=== PATIENT | female | born 1970 | race Caucasian/White ===

== ENCOUNTER 2017-05-06 14:23 | Emergency (ER) | payer BC ==
[~2017-05-06] VITALS: Ht 172.7 cm; Wt 117.9 kg
[2017-05-06] MEDS ORDERED: IBUPROFEN 400 MG TAB PO ONE (15:00)
[2017-05-06] MEDS ORDERED: ACETAMINOPHEN 325 MG TAB PO ONE (15:00)
--- NOTE | 2017-05-06 15:15 | Diagnostic Imaging Report ---
EXAMINATION: CHEST 2 VIEWS INDICATION: \S\FEVER/COUGH COMPARISON: None FINDINGS: PA and lateral views TUBES and LINES: None. LUNGS: Lungs are well inflated. Bilateral peribronchial cuffing. There is no evidence of pneumonia or pulmonary edema. PLEURA: No pleural effusion or pneumothorax. HEART AND MEDIASTINUM: The cardiomediastinal silhouette is unremarkable. BONES AND SOFT TISSUES: No acute osseous lesion. Soft tissues are unremarkable. UPPER ABDOMEN: No free air under the diaphragm. IMPRESSION: Bilateral peribronchial cuffing, which could represent viral etiology or reactive airway disease. Signed by: Dr. Royal Cannon M.D. on 05/06/2017 3:11 PM
== END 2017-05-06 16:48 | disposition home or self-care (01) ==
LOC: ER 14:23
DX: R50.9 Fever, unspecified (principal); R05 Cough; J00 Acute nasopharyngitis [common cold]; I10 Essential (primary) hypertension; F17.210 Nicotine dependence, cigarettes, uncomplicated
CPT/HCPCS: 71020; 87400; 99283

== ENCOUNTER → 2017-06-16 | Outpatient (CLI) | payer BC | LOC: SLEEP 19:31 | DX: G47.19 Other hypersomnia (principal) | CPT/HCPCS: 95810 ==

== ENCOUNTER → 2017-07-06 | Outpatient (CLI) | payer BC ==
--- NOTE | 2017-07-06 14:57 | Diagnostic Imaging Report ---
PROCEDURE:X-RAY ABDOMEN - KUB COMPARISON:CT dated 12/07/2015 INDICATIONS:LOCALIZE IUD FINDINGS: There is a non-obstructed bowel-gas pattern. There are no calcifications projected over the renal shadows, expected course of the ureters or bladder. There are no acute osseous abnormalities. IUD overlying pelvis. CONCLUSION: IUD overlying pelvis. Dictated by: Artemio Dotson M.D. on 07/06/2017 at 14:58 Electronically approved by: Artemio Dotson M.D. on 07/06/2017 at 14:58
--- NOTE | 2017-07-09 12:26 | Polysomnography ---
DATE OF STUDY: July 06, 2017 DIAGNOSTIC POLYSOMNOGRAM REFERRING PHYSICIAN: Dr. Humble Reyes. HISTORY: This is a 47-year-old female with migraine and excessive daytime sleepiness. PAST MEDICAL HISTORY: Migraines, mood disorder, hypertension. Patient with Rentz sleepiness scale score of 15. BMI is 41.1. CURRENT MEDICINES: Inderal, sertraline, Abilify, gabapentin, and Ambien. Patient presents for a diagnostic polysomnogram. FINDINGS: Polysomnogram revealed total sleep time of 438.5 minutes, a sleep efficiency of 93%. Sleep onset latency was achieved in 16 minutes, REM latency 123 minutes. All sleep stages were noted. Stage N1 of 3.2%, N2 of 49.5%, N3 of 32.5%, REM 14.8% of total sleep time. Intermittent snoring was noted. A total of 3 obstructive apneas and 9 hypopneas were noted for apnea hypopnea index of 1.6 events per hour. Events were more likely to occur in REM sleep. REM sleep was only studied in the side position on this night. For the total night, 12.3% of sleep time was in supine position. Lowest oxygen saturation was 82%, but there was no sustained desaturations. A total of 69 periodic limb movements of sleep were noted for a periodic limb movement and sleep index of 9.4 events per hour. Single lead EKG analysis demonstrated sinus rhythm and was otherwise unremarkable. Patient did not take sleeping pill prior to this sleep study, per report. INTERPRETATION: This is an abnormal polysomnogram due to the presence of 1. Intermittent snoring: Multiple factors such as obesity, thyroid disease, and structural/obstructive abnormalities in upper airway can be contributory. Evaluation and management of these factors may be helpful. The patient does not require CPAP therapy. An ENT examination may be helpful if snoring persists and creates significant lifestyle difficulties. 2. Subjective sleepiness. Patient reported excess daytime sleepiness for a number of years. Patient should not drive or operate dangerous machinery if sleepy. Clinical followup should ensue to ensure that this sleepiness resolves or is addressed appropriately. Abilify may contribute to daytime sleepiness and review of her other medicines should be made as well. If it is felt the patient sleeps supine significantly more than what she did in her sleep lab, then repeat polysomnogram can be considered if it is felt that thus study underestimates any respiratory related sleep disturbances. If excessive daytime sleepiness remains bothersome and there is a concern for a hypersomnia such as narcolepsy, consideration may be for a second-night sleep study to be followed by multiple sleep latency testing. Clinical correlation is recommended. MD XUAN Yepez Certified in Sleep Medicine Job#: [id number]
--- NOTE | 2017-07-13 18:10 | Diagnostic Imaging Report ---
#[id number] - MGSCRBIL #BILATERAL DIGITAL SCREENING MAMMOGRAM WITH CAD: 07/06/2017 CLINICAL: Routine screening. Comparison is made to exam dated: 01/20/2016 mammogram - [facility]. Current study contains 4 films. The tissue of both breasts is heterogeneously dense. This may lower the sensitivity of mammography. Current study was also evaluated with a Computer Aided Detection (CAD) system. There is a benign intramammary node in the left breast that is stable. No significant masses, calcifications, or other findings are seen in either breast. There has been no significant interval change. IMPRESSION: BENIGN There is no mammographic evidence of malignancy. A 1 year screening mammogram is recommended. The patient will be notified by letter of the results. Deric Pederson Jr., D.O. cw/:07/12/2017 15:52:32 Ice Skating Teacher: Patricia MCGARRY)(Angel), [facility] letter sent: Compared to Prior B9 Mammogram BI-RADS: 2 Benign
== END ==
LOC: MAMMO 14:14
PROVIDERS: ATTEND Obstetrics & Gynecology
DX: Z12.31 Encounter for screening mammogram for malignant neoplasm of breast (principal); Z30.431 Encounter for routine checking of intrauterine contraceptive device; R06.83 Snoring; R94.8 Abnormal results of function studies of other organs and systems
CPT/HCPCS: 74018; 77067

== ENCOUNTER 2018-05-12 15:19 | Emergency (ER) | payer BC ==
[~2018-05-12] VITALS: Ht 172.7 cm; Wt 124.7 kg
--- OUTSIDE RECORDS SUMMARY | 2018-05-12 15:21 | XMS REPORT ---
[facility] Address Unknown Phone Unavailable Care Team Providers Care Final Expense Agent Name Role Phone SHONDA SILVA Unavailable Unavailable Cristofer CADENA Unavailable Unavailable Problems This patient has no known problems. Allergies, Adverse Reactions, Alerts This patient has no known allergies or adverse reactions. Medications This patient has no known medications. Results Test Description Test Time Test Comments Text Results Atomic Results Result Comments MAMMOGRAPHY DIGITAL SCR BILAT [place] [address] Patient Name: MANDEEP LYMAN MR #: [id number] : 1970 Age/Sex: 47/F Req #: [id number] [facility] Physician: Ordered by: SHONDA SIVLA MD Report #: [id number] Location: MAMMO Room/Bed: Procedure: [id number] MG/MAMMOGRAPHY DIGITAL SCR BILAT Exam Date: 07/06/17 Exam Time: 1422 REPORT STATUS: Signed #[id number] - MGSCRBIL #BILATERAL DIGITAL SCREENING MAMMOGRAM WITH CAD: 07/06/2017 CLINICAL: Routine screening. Comparison is made to exam dated: 01/20/2016 mammogram - [facility]. Current study contains 4 films. The tissue of both breasts is heterogeneously dense. This may lower the sensitivity of mammography. Current study was also evaluated with a Computer Aided Detection (CAD) system. There is a benign intramammary node in the left breast that is stable. No significant masses, calcifications, or other findings are seen in either breast. There has been no significant interval change. IMPRESSION: BENIGN There is no mammographic evidence of malignancy. A 1 year screening mammogram is recommended. The patient will be notified by letter of the results. Randy Pederson Jr., D.O. cw/:07/12/2017 15:52:32 Information Technology Analyst: Patricia MCGARRY)(Angel), [facility] letter sent: Compared to Prior B9 Mammogram BI-RADS: 2 Benign Dictated By: RANDY PEDERSON DO 51 Transcribed By: KADIE on 07/12/171551 COPY TO: SHONDA SILVA MD ABDOMEN-1VIEW (KUB) [place] [address] Patient Name: MANDEEP LYMAN MR #: [id number] : 1970 Age/Sex: 47/F Req #: [id number] Adm Physician: Ordered by: SHONDA SILVA MD Report #: [id number] Location: MAMMO Room/Bed: Procedure: [id number] DX/ABDOMEN-1VIEW (KUB) Exam Date: 07/06/17 Exam Time: 1430 REPORT STATUS: Signed PROCEDURE: X-RAY ABDOMEN - KUB COMPARISON: CT dated 12/07/2015 INDICATIONS: LOCALIZE IUD FINDINGS: There is a non-obstructed bowel-gas pattern. There are no calcifications projected over the renal shadows, expected course of the ureters or bladder. There are no acute osseous abnormalities. IUD overlying pelvis. CONCLUSION: IUD overlying pelvis. Dictated by: Artemio Archer M.D. on 07/06/2017 at 14:58 Electronically approved by: Artemio Archer M.D. on 07/06/2017 at 14:58 Dictated By: ARTEMIO ARCHER MD 1458 Transcribed By: ZELALEM on 07/06/17 1458 COPY TO: SHONDA SILVA MD CHEST 2 VIEWS [place] [address] Patient Name: MANDEEP LYMAN MR #: [id number] : 1970 Age/Sex: 47/F Req #: [id number] Adm Physician: Ordered by: RICHARD CADENA MD Report #: [id number] Location: ER Room/Bed: Procedure: [id number] DX/CHEST 2 VIEWS Exam Date: 05/06/17 Exam Time: 1500 REPORT STATUS: Signed EXAMINATION: CHEST 2 VIEWS INDICATION: S FEVER/COUGH COMPARISON: None FINDINGS: PA and lateral views TUBES and LINES: None. LUNGS: Lungs are well inflated. Bilateral peribronchial cuffing. There is no evidence of pneumonia or pulmonary edema. PLEURA: No pleural effusion or pneumothorax. HEART AND MEDIASTINUM: The cardiomediastinal silhouette is unremarkable. BONES AND SOFT TISSUES: No acute osseous lesion. Soft tissues are unremarkable. UPPER ABDOMEN: No free air under the diaphragm. IMPRESSION: Bilateral peribronchial cuffing, which could represent viral etiology or reactive airway disease. Signed by: Dr. Robert Meza M.D. on 05/06/2017 3:11 PM Dictated By: ROBERT MEZA MD 151 Transcribed By: FRANDY on 05/06/171510 COPY TO: RICHARD CADENA MD
[2018-05-12] MEDS ORDERED: ALBUTEROL SULF 0.083% NEB SOLN 3 ML NEB NEB STA (15:46)
[2018-05-12] MEDS ORDERED: ACETAMINOPHEN 325 MG TAB PO ONE (16:00)
[2018-05-12] MEDS ORDERED: IPRATROPIUM BROMIDE 0.02% 2.5 ML NEB NEB ONE (16:00)
--- NOTE | 2018-05-12 17:05 | Diagnostic Imaging Report ---
EXAMINATION: PA and lateral views of the chest. COMPARISON: Chest 2 views 05/06/2017 CLINICAL HISTORY: Chest pain DISCUSSION: Lines/tubes: None. Lungs: The lungs are well inflated and clear. There is no evidence of pneumonia or pulmonary edema. Pleura: There is no pleural effusion or pneumothorax. Heart and mediastinum: Cardiomediastinal silhouette is unremarkable. Pulmonary vasculature is normal. Bones and soft tissues: No acute bony abnormalities. Mild age-appropriate degenerative changes in the thoracic spine IMPRESSION: No acute cardiopulmonary abnormalities. Signed by: Dr. Manan Montero M.D. on 05/12/2018 5:01 PM
== END 2018-05-12 18:02 | disposition home or self-care (01) ==
LOC: FSED 15:19
DX: R05 Cough (principal); J20.9 Acute bronchitis, unspecified; J00 Acute nasopharyngitis [common cold]
CPT/HCPCS: 71046; 87400; 99283

== ENCOUNTER → 2019-12-31 | Outpatient (CLI) | payer BC ==
--- NOTE | 2019-12-31 11:39 | Diagnostic Imaging Report ---
TECHNIQUE: Magnetic resonance imaging of the LEFT KNEE was performed WITHOUT injected contrast. HISTORY: Left knee pain COMPARISON: None available. FINDINGS: LIGAMENTS AND TENDONS: ACL: Intact PCL: Intact Collateral ligaments: Intact Iliotibial band: Unremarkable Popliteal tendon: Intact Extensor mechanism: Intact JOINT: Menisci: Medial: Complete radial tear posterior horn root junction results in extrusion. Lateral: Intact Articular Cartilage: Medial Compartment: Partial-thickness cartilage loss Lateral Compartment: Partial-thickness cartilage loss Patellofemoral Compartment: Regions of full-thickness cartilage loss predominantly involving the lateral patellar facet. Joint Fluid: Moderate joint effusion. BONE: No focal or infiltrative bone marrow replacing abnormality. No acute fracture. SOFT TISSUES: Otherwise, unremarkable. IMPRESSION: Medial meniscus radial tear posterior horn root junction results in extrusion and partial thickness cartilage loss. Patellofemoral cartilage damage with regions of full-thickness loss. Signed by: Dr. Dexter Hernandez M.D. on 12/31/2019 11:36 AM
== END ==
LOC: MRI 10:14
PROVIDERS: ATTEND Specialist
DX: S83.242A Other tear of medial meniscus, current injury, left knee, initial encounter (principal)

== ENCOUNTER → 2020-01-14 | Day surgery (SDC) | payer BC, OTHER ==
[~2020-01-14] MED LIST: ABILIFY15 MG; ACETAMINOPHEN/CODEINE 300MG - 30MG TAB ONE; ATIVAN1 MG; ATROPINE SULFATE 1 MG/ML VIAL ONE; BUPIVACAINE 0.5%/EPI 30 ML SDV INJ ONE; CEFAZOLIN SOD 1 GM/NS 50ML 100 ML IV ONE; CRESTOR10 MG; DEXAMETHASONE SOD PHOS INJ 4 MG/ML VIAL ONE; FENTANYL CITRATE/PF 100MCG/2 ML INJ ONE; HYDROMORPHONE 1MG/1ML INJ ONE; KETOROLAC TROMETHAMINE 30 MG/ML VIAL ONE; LABETALOL HCL 5 MG/ML 20ML VIAL ONE; LIDOCAINE HCL 2% LOCAL INJ 5 ML SDV VIAL INJ ONE; LOSARTAN POTAS100 MG PO; MIDAZOLAM HCL 2 MG/2 ML VIAL ONE; NEXIUM40 MG PO; ONDANSETRON HCL INJ 2MG/ML 2ML 2 MG/ML VIAL ONE; PROPOFOL IV EMULSION 10 MG/ML 20 ML VIAL ONE; RELPAX40 MG PO; REQUIP0.25 MG; SEVOFLURANE INHAL SOLN 250 ML PEN BTL ONE; TRAZADONE; VITAMIN D32400 UNIT/; ZOLOFT50 MG PO
[2020-01-14 11:07] VITALS: BP 5/8
--- NOTE | 2020-01-15 15:56 | Operative Report ---
DATE OF PROCEDURE: 01/14/2020 SURGEON: Shiva Duran MD PREOPERATIVE DIAGNOSIS: Left knee medial meniscus tear and left knee degenerative joint disease of the knee. POSTOPERATIVE DIAGNOSES: Left knee medial meniscus tear and left knee degenerative joint disease of the knee. OPERATIONS AND PROCEDURES PERFORMED: The patient underwent a left knee exam under anesthesia, left knee arthroscopy, left knee partial medial meniscectomy, left knee chondroplasty of the patella, the medial femoral condyle, the medial tibial plateau, and a lateral tibial plateau. PARANORMAL INVESTIGATOR: None. ANESTHESIA: General endotracheal intubation anesthesia. IV FLUIDS: Per the anesthesia record. BRIEF DESCRIPTION OF THE PATIENT'S OPERATIVE PROCEDURE: Ms. Peoples was taken to the operating room and placed in supine position on the operating table. Following induction of general anesthesia as well as endotracheal intubation, the patient's left lower extremity was examined under anesthesia. She was found to have a mild effusion within the knee joint, but otherwise ligamentously stable knee. The patient's lower extremity was prepped and draped in standard surgical fashion. A two-port technique was used to provide this patient's arthroscopic evaluation of the knee joint. Examination of the suprapatellar pouch and medial and lateral gutters found no evidence of loose bodies. The patient was found to have chondromalacia of the patella and trochlear surfaces. The scope was advanced to medial compartment. Examination of the medial compartment demonstrated a torn medial meniscus of the posterior horn root. There was also chondromalacia of the articulating surfaces. A combination of biting forceps and a motorized shaver were used to resect the torn portion of meniscus. Chondroplasties of the medial femoral condyle and medial tibial plateau are performed at this time. Scope was then advanced to intercondylar notch and anterior cruciate ligament was identified and found to be intact. Scope was then advanced to lateral compartment and chondromalacia of the lateral tibial plateau was encountered. A chondroplasty of this surface was performed. Scope was then placed in suprapatellar pouch and chondroplasties of the patellar and trochlear are performed. The knee was then deflated with sterile normal saline. Each of the portal sites were closed using 4-0 nylon suture. The portal sites as well as knee itself were injected with 0.5% Marcaine with epinephrine. Sterile dressings were applied. The patient was awakened and taken to the postanesthesia care unit in stable condition. MD CHRISTIANO Melgar/KRIS /[id number]
== END | disposition home or self-care (01) ==
LOC: OR 05:00
PROVIDERS: ATTEND Specialist
DX: S83.222A Peripheral tear of medial meniscus, current injury, left knee, initial encounter (principal); M17.12 Unilateral primary osteoarthritis, left knee; M22.42 Chondromalacia patellae, left knee; G25.81 Restless legs syndrome; K29.70 Gastritis, unspecified, without bleeding; G43.909 Migraine, unspecified, not intractable, without status migrainosus; G47.30 Sleep apnea, unspecified; E78.5 Hyperlipidemia, unspecified; R00.1 Bradycardia, unspecified; F32.9 Major depressive disorder, single episode, unspecified; F41.9 Anxiety disorder, unspecified; F17.210 Nicotine dependence, cigarettes, uncomplicated; Z88.8 Allergy status to other drugs, medicaments and biological substances; Z01.810 Encounter for preprocedural cardiovascular examination; Z01.812 Encounter for preprocedural laboratory examination; Z11.59 Encounter for screening for other viral diseases; Z68.41 Body mass index [BMI] 40.0-44.9, adult
CPT/HCPCS: 29881; 81025; 93005; J0461; J0690; J1100; J1170; J1885; J2001; J2250; J2405; J2704; J3010; J3490; U0002

== ENCOUNTER 2020-02-20 15:00 | Outpatient (RCR) | payer BC ==
[~2020-02-20 15:00] MED LIST changes: -ACETAMINOPHEN/CODEINE 300MG - 30MG TAB ONE; -ATROPINE SULFATE 1 MG/ML VIAL ONE; -BUPIVACAINE 0.5%/EPI 30 ML SDV INJ ONE; -CEFAZOLIN SOD 1 GM/NS 50ML 100 ML IV ONE; -DEXAMETHASONE SOD PHOS INJ 4 MG/ML VIAL ONE; -FENTANYL CITRATE/PF 100MCG/2 ML INJ ONE; -HYDROMORPHONE 1MG/1ML INJ ONE; -KETOROLAC TROMETHAMINE 30 MG/ML VIAL ONE; -LABETALOL HCL 5 MG/ML 20ML VIAL ONE; -LIDOCAINE HCL 2% LOCAL INJ 5 ML SDV VIAL INJ ONE; -MIDAZOLAM HCL 2 MG/2 ML VIAL ONE; -ONDANSETRON HCL INJ 2MG/ML 2ML 2 MG/ML VIAL ONE; -PROPOFOL IV EMULSION 10 MG/ML 20 ML VIAL ONE; -SEVOFLURANE INHAL SOLN 250 ML PEN BTL ONE
== END 2020-02-28 ==
LOC: PT 15:00
PROVIDERS: ATTEND Specialist
DX: M25.562 Pain in left knee (principal); M25.662 Stiffness of left knee, not elsewhere classified; M62.81 Muscle weakness (generalized); R26.89 Other abnormalities of gait and mobility

== ENCOUNTER 2020-03-15 17:27 | Outpatient (RCR) | payer BC | END 2020-03-29 | LOC: PT 17:27 | PROVIDERS: ATTEND Specialist | DX: M25.562 Pain in left knee (principal); M25.662 Stiffness of left knee, not elsewhere classified; M62.81 Muscle weakness (generalized); R26.89 Other abnormalities of gait and mobility ==

== ENCOUNTER → 2020-05-04 | Outpatient (CLI) | payer OTHER ==
[~2020-05-04] MED LIST changes: +COVID-19 VACC, MRNA(MODERNA)/PF 100 MCG/0.5 ML VIAL IM ONE
== END | disposition home or self-care (01) ==
LOC: VACCPMC 07:00
DX: Z23 Encounter for immunization (principal); Z20.822 Contact with and (suspected) exposure to COVID-19

== ENCOUNTER 2020-05-25 15:00 | Outpatient (RCR) | payer BC, OTHER ==
[~2020-05-25 15:00] MED LIST changes: -COVID-19 VACC, MRNA(MODERNA)/PF 100 MCG/0.5 ML VIAL IM ONE
== END 2020-05-30 ==
LOC: PT 15:00
PROVIDERS: ATTEND Specialist
DX: M22.2X2 Patellofemoral disorders, left knee (principal); M25.562 Pain in left knee; M25.662 Stiffness of left knee, not elsewhere classified; M62.81 Muscle weakness (generalized)

== ENCOUNTER → 2020-06-02 | Outpatient (CLI) | payer OTHER | END | DRG 951 | LOC: VACCPMC 07:30 | DX: Z23 Encounter for immunization (principal); Z20.822 Contact with and (suspected) exposure to COVID-19 | CPT/HCPCS: 0012A; 91301 ==

== ENCOUNTER 2020-06-03 14:59 | Outpatient (RCR) | payer OTHER | END 2020-06-27 | LOC: PT 14:59 | PROVIDERS: ATTEND Specialist | DX: M25.562 Pain in left knee (principal); M22.2X2 Patellofemoral disorders, left knee; M25.662 Stiffness of left knee, not elsewhere classified; M62.81 Muscle weakness (generalized) ==

== ENCOUNTER → 2020-11-04 | Day surgery (SDC) | payer OTHER ==
[~2020-11-04] MED LIST changes: -ABILIFY15 MG; +ABILIFY15 MG PO; +AMITRIPTYLINE H10 MG PO; +ATROPINE SULFATE 1 MG/ML VIAL ONE; -CRESTOR10 MG; +CRESTOR10 MG PO; +DETROL LA4 MG PO; +DEXAMETHASONE SOD PHOS INJ 4 MG/ML VIAL ONE; +DIOVAN160 MG PO; +FENTANYL CITRATE/PF 100MCG/2 ML INJ ONE; +LIDOCAINE 1% W/EPINEPHRINE 20 ML VIAL ONE; +LIDOCAINE HCL 2% LOCAL INJ 5 ML SDV VIAL INJ ONE; +MIDAZOLAM HCL 2 MG/2 ML VIAL ONE; +MUPIROCIN 2% OINT 22 GM TUBE ONE; +ONDANSETRON HCL INJ 2MG/ML 2ML 2 MG/ML VIAL ONE; +POVIDONE IODINE 0.05% 0.05 % ML PO ONE; +POVIDONE IODINE 5% (OPTH) 30 ML BTL ONE; +PROPOFOL IV EMULSION 10 MG/ML 20 ML VIAL ONE; -REQUIP0.25 MG; +REQUIP0.25 MG PO; +SEVOFLURANE INHAL SOLN 250 ML PEN BTL ONE; +SODIUM CHLORIDE 0.9% 50ML 50 ML ONE; -TRAZADONE; +TRAZADONE PO; +VITAMIN D32400 UNIT/ PO
[2020-11-04 09:54] VITALS: BP 5/8
== END | disposition home or self-care (01) ==
LOC: OR 05:31
PROVIDERS: ATTEND Plastic Surgery
DX: C44.311 Basal cell carcinoma of skin of nose (principal); I10 Essential (primary) hypertension; Z88.8 Allergy status to other drugs, medicaments and biological substances
CPT/HCPCS: 11640; 81025; 88305; 88331; 93005; J0461; J0690; J1100; J2001; J2250; J2405; J2704; J3010

== ENCOUNTER → 2021-02-24 | Outpatient (CLI) | payer OTHER ==
[~2021-02-24] MED LIST changes: -ATROPINE SULFATE 1 MG/ML VIAL ONE; +COVID-19 VACC, MRNA(MODERNA)/PF 100 MCG/0.5 ML VIAL IM ONE; -DEXAMETHASONE SOD PHOS INJ 4 MG/ML VIAL ONE; -FENTANYL CITRATE/PF 100MCG/2 ML INJ ONE; -LIDOCAINE 1% W/EPINEPHRINE 20 ML VIAL ONE; -LIDOCAINE HCL 2% LOCAL INJ 5 ML SDV VIAL INJ ONE; -MIDAZOLAM HCL 2 MG/2 ML VIAL ONE; -MUPIROCIN 2% OINT 22 GM TUBE ONE; -ONDANSETRON HCL INJ 2MG/ML 2ML 2 MG/ML VIAL ONE; -POVIDONE IODINE 0.05% 0.05 % ML PO ONE; -POVIDONE IODINE 5% (OPTH) 30 ML BTL ONE; -PROPOFOL IV EMULSION 10 MG/ML 20 ML VIAL ONE; -SEVOFLURANE INHAL SOLN 250 ML PEN BTL ONE; -SODIUM CHLORIDE 0.9% 50ML 50 ML ONE
== END ==
LOC: VACCPMC 07:27
DX: Z23 Encounter for immunization (principal); Z20.822 Contact with and (suspected) exposure to COVID-19

== ENCOUNTER 2021-06-19 22:10 | Emergency (ER) | payer BC, OTHER ==
[~2021-06-19] VITALS: Ht 172.7 cm; Wt 124.7 kg
[~2021-06-19 22:10] MED LIST changes: -COVID-19 VACC, MRNA(MODERNA)/PF 100 MCG/0.5 ML VIAL IM ONE
[2021-06-19] MEDS ORDERED: ALBUTEROL SULF 0.083% NEB SOLN 3 ML NEB NEB STA (22:24)
[2021-06-19] MEDS ORDERED: IPRATROPIUM BROMIDE 0.02% 2.5 ML NEB NEB ONE (22:30)
== END 2021-06-19 23:55 | disposition home or self-care (01) ==
LOC: ER 22:25
DX: R50.9 Fever, unspecified (principal); J40 Bronchitis, not specified as acute or chronic; R05.9 Cough, unspecified; Z20.822 Contact with and (suspected) exposure to COVID-19
CPT/HCPCS: 71045; 94799; 99283; U0002

== ENCOUNTER 2021-08-22 08:18 | Inpatient (IN) | payer BC ==
[2021-08-18 10:15] LABS: BASOPHILS # (AUTO) 0.1 (0.0-0.1); BASOPHILS % 0.8 % (0.0-1.0); EOSINOPHILS # (AUTO) 0.3 (0.0-0.4); EOSINOPHILS % 3.4 % (0.0-6.0); HEMATOCRIT 40.9 % (34.2-44.1); HEMOGLOBIN 12.7 g/dL (12.0-16.0); LYMPHOCYTES # (AUTO) 2.4 (1.0-3.2); LYMPHOCYTES % 26.6 % (18.0-39.1); MEAN CORPUSCULAR HEMOGLOBIN 26.6 pg (28-32); MEAN CORPUSCULAR HGB CONC 31.1 g/dL (31-35); MEAN CORPUSCULAR VOLUME 85.6 fL (81-99); MONOCYTES # (AUTO) 0.6 (0.2-0.8); MONOCYTES % 6.2 % (4.4-11.3); NEUTROPHILS # (AUTO) 5.7 (2.1-6.9); NEUTROPHILS % 62.3 % (38.7-80.0); PLATELET COUNT 327 x10e3/uL (140-360); RED BLOOD COUNT 4.78 x10e6/uL (3.6-5.1); RED CELL DISTRIBUTION WIDTH 15.5 % (11.7-14.4)
[2021-08-18 10:16] LABS: ALBUMIN 3.6 g/dL (3.5-5.0); CALCIUM 9.2 mg/dL (8.4-10.2); CREATININE, SERUM 0.79 mg/dL (0.57-1.11)
[~2021-08-22] VITALS: Ht 172.7 cm; Wt 139.3 kg
[2021-08-22] MEDS ORDERED: BUPIVACAINE HCL 0.25% 10ML MPF VIAL INJ ONE (10:50)
[2021-08-22] MEDS ORDERED: SUCCINYLCHOLINE CHLORIDE 20 MG/ML 10ML VIAL ONE (12:13)
[2021-08-22] MEDS ORDERED: POVIDONE IODINE 0.05% 0.05 % ML PO ONE (12:13)
[2021-08-22] MEDS ORDERED: DEXAMETHASONE SOD PHOS INJ 4 MG/ML SDV ONE (12:13)
[2021-08-22] MEDS ORDERED: KETOROLAC TROMETHAMINE 30 MG/ML VIAL ONE (12:13)
[2021-08-22] MEDS ORDERED: ATROPINE SULFATE 1 MG/ML VIAL ONE (12:13)
[2021-08-22] MEDS ORDERED: NEOSTIGMINE 1 MG/ML 10ML VIAL ONE (12:13)
[2021-08-22] MEDS ORDERED: SEVOFLURANE INHAL SOLN 250 ML PEN BTL ONE (12:13)
[2021-08-22] MEDS ORDERED: ROCURONIUM BROMIDE 10 MG/ML 5ML VIAL IV ONE (12:13)
[2021-08-22] MEDS ORDERED: LIDOCAINE HCL 2% LOCAL INJ 5 ML SDV VIAL INJ ONE (12:13)
[2021-08-22] MEDS ORDERED: PROPOFOL IV EMULSION 10 MG/ML 20 ML VIAL ONE (12:13)
[2021-08-22] MEDS ORDERED: ONDANSETRON HCL INJ 2MG/ML 2ML 2 MG/ML VIAL ONE (12:13)
[2021-08-22] MEDS ORDERED: HYDROCODONE/APAP 7.5MG-325MG 1 EA TAB PO PRN (13:15)
[2021-08-22] MEDS ORDERED: Morphine 2mg Syringe 2 MG/ML SYR IV PRN (13:15)
[2021-08-22] MEDS ORDERED: ONDANSETRON HCL INJ 2MG/ML 2ML 2 MG/ML VIAL IV PRN (13:15)
[2021-08-22] MEDS: LACTATED RINGER'S 1,000 ML INJ SCH (13:15)
[2021-08-22] MEDS ORDERED: PROMETHAZINE HCL (IM) 25 MG/ML VIAL IM ONE (13:19)
[2021-08-22] MEDS ORDERED: FENTANYL CITRATE/PF 100MCG/2 ML INJ ONE ×2 (13:29→13:33)
[2021-08-22] MEDS ORDERED: MIDAZOLAM HCL 2 MG/2 ML VIAL ONE (13:33)
[2021-08-22 15:16] VITALS: BP 148/88
[2021-08-22 15:22] VITALS: BP 148/88
[2021-08-22 15:58] VITALS: BP 148/88
[2021-08-22] MEDS ORDERED: ROPINIROLE HCL 1 MG TAB PO SCH (21:00)
[2021-08-22] MEDS ORDERED: TRAZODONE 100 MG PO SCH (21:00)
[2021-08-22] MEDS ORDERED: TRAZODONE HCL 50 MG TAB PO SCH (21:00)
[2021-08-22 21:04] VITALS: BP 147/87
[2021-08-22 21:14] VITALS: BP 147/87
[2021-08-22] MEDS: ENOXAPARIN SOD INJ 40 MG/0.4 ML SYR SC SCH (22:11)
[2021-08-22] MEDS ORDERED: SERTRALINE HCL 100 MG TAB PO SCH (23:14)
[2021-08-22 23:53] VITALS: BP 138/70
[2021-08-23] MEDS: LACTATED RINGER'S 1,000 ML INJ SCH ×2 (01:42→06:29)
[2021-08-23 05:15] LABS: BASOPHILS % 0.3 % (0.0-1.0); EOSINOPHILS % 0.1 % (0.0-6.0); HEMATOCRIT 36.4 % (34.2-44.1); HEMOGLOBIN 11.7 g/dL (12.0-16.0); LYMPHOCYTES # (AUTO) 2.1 (1.0-3.2); LYMPHOCYTES % 15.2 % (18.0-39.1); MEAN CORPUSCULAR HEMOGLOBIN 27.3 pg (28-32); MEAN CORPUSCULAR HGB CONC 32.1 g/dL (31-35); MONOCYTES # (AUTO) 0.8 (0.2-0.8); MONOCYTES % 5.5 % (4.4-11.3); NEUTROPHILS # (AUTO) 10.9 (2.1-6.9); NEUTROPHILS % 78.3 % (38.7-80.0); PLATELET COUNT 320 x10e3/uL (140-360); RED BLOOD COUNT 4.28 x10e6/uL (3.6-5.1); RED CELL DISTRIBUTION WIDTH 15.8 % (11.7-14.4)
[2021-08-23 05:39] VITALS: BP 120/72
[2021-08-23 05:41] LABS: ALBUMIN 3.7 g/dL (3.5-5.0); ALBUMIN/GLOBULIN RATIO 1.1 (0.8-2.0); ANION GAP 13.1 mmol/L (8-16); CALCIUM 8.8 mg/dL (8.4-10.2); CREATININE, SERUM 0.91 mg/dL (0.57-1.11); POTASSIUM 4.1 mmol/L (3.5-5.1)
[2021-08-23 05:52] LABS: MAGNESIUM 2.1 MG/DL (1.3-2.1); PHOSPHORUS 3.7 MG/DL (2.3-4.7)
[2021-08-23] MEDS: ENOXAPARIN SOD INJ 40 MG/0.4 ML SYR SC SCH (08:43)
[2021-08-23] MEDS ORDERED: VALSARTAN 160 MG TAB PO SCH (09:00)
[2021-08-23] MEDS ORDERED: ARIPIPRAZOLE 5 MG TABLET PO SCH (09:00)
[2021-08-23] MEDS ORDERED: SERTRALINE HCL 100 MG TAB PO SCH (09:00)
[2021-08-23] MEDS ORDERED: TOLTERODINE TARTRATE 4 MG CAPCR PO SCH (09:00)
[2021-08-23] MEDS ORDERED: PANTOPRAZOLE SOD 40 MG TABEC PO SCH (09:00)
[2021-08-23] MEDS ORDERED: NON-FORMULARY MEDICATION (Aripiprazole (Abilify) 15 MG) PO SCH (09:00)
[2021-08-23 09:21] VITALS: BP 116/69
[2021-08-23 09:26] VITALS: BP 116/69
[2021-08-23] MEDS ORDERED: TOLTERODINE TARTRATE 2 MG CAPCR PO SCH (10:00)
[2021-08-23] MEDS ORDERED: SIMVASTATIN 20 MG TAB PO SCH (21:00)
== END 2021-08-23 10:36 | disposition home or self-care (01) | DRG 621 ==
LOC: OR 08:18 → PACU V 13:19 → MED/SURG 14:59
PROVIDERS: ADMIT Internal Medicine; ATTEND Internal Medicine
PROC: 0D164ZA Bypass Stomach to Jejunum, Percutaneous Endoscopic Approach (ICD-10-PCS; principal; 2021-08-22 10:44)
DX: E66.01 Morbid (severe) obesity due to excess calories (principal); K21.9 Gastro-esophageal reflux disease without esophagitis; G25.81 Restless legs syndrome; F32.A Depression, unspecified; I11.9 Hypertensive heart disease without heart failure; E78.5 Hyperlipidemia, unspecified; F17.210 Nicotine dependence, cigarettes, uncomplicated; Z68.42 Body mass index [BMI] 45.0-49.9, adult
CPT/HCPCS: 36415; 80053; 81025; 83735; 84100; 85025; 93005; 94799; C1713; J0330; J0461; J0690; J1100; J1650; J1885; J2001; J2250; J2270; J2405; J2550; J2710; J3010; J7121; U0002

== ENCOUNTER 2022-02-25 16:42 | Emergency (ER) | payer BC ==
[~2022-02-25] VITALS: Ht 172.7 cm; Wt 103.2 kg
[2022-02-25] MEDS ORDERED: AMLODIPINE BESYL5 MG PO (17:20)
== END 2022-02-25 18:07 | disposition left against medical advice (07) ==
LOC: FSED 17:19
DX: M79.675 Pain in left toe(s) (principal)

== ENCOUNTER → 2022-03-30 | Outpatient (CLI) | payer BC ==
[~2022-03-30] MED LIST changes: +AMLODIPINE BESYL5 MG PO
[2022-03-30 15:28] LABS: FERRITIN 9.61 ng/mL (4.63-204.00)
== END ==
LOC: LAB 14:01
PROVIDERS: ATTEND Psychiatry & Neurology Clinical Neurophysiology
DX: G62.9 Polyneuropathy, unspecified (principal); G25.81 Restless legs syndrome
CPT/HCPCS: 36415; 82607; 82728; 82746; 83036; 83540; 84207; 84425; 86039; 86200; 86235; 86334; 86431

== ENCOUNTER → 2022-04-06 | Outpatient (CLI) | payer BC | LOC: MRI 07:25 | PROVIDERS: ATTEND Psychiatry & Neurology Clinical Neurophysiology | DX: M51.16 Intervertebral disc disorders with radiculopathy, lumbar region (principal) | CPT/HCPCS: 72148 ==

== ENCOUNTER → 2022-10-05 | Outpatient (CLI) | payer BC | LOC: MAMMO 14:33 | PROVIDERS: ATTEND Obstetrics & Gynecology | DX: Z12.31 Encounter for screening mammogram for malignant neoplasm of breast (principal) | CPT/HCPCS: 77067 ==

== ENCOUNTER 2024-06-06 06:38 | Emergency (ER) | payer BC ==
[~2024-06-06] VITALS: Ht 172.7 cm; Wt 90.7 kg
[~2024-06-06 06:38] MED LIST changes: +B COMPLEX1 EACH PO; +B12; +BENZONATATE100 MG PO; +BIOTIN1 MG; +IRON GLYCINATE29 MG; +METAMUCIL FIBE3.4 GM PO; +MIRAPEX0.125 MG PO; +MULTI-VITAMIN1 EACH PO; +PANTOPRAZOLE SO40 MG PO; +TRIPLE HELIX COL1 GM PO; +ULTRAM 50MG50 MG PO
[2024-06-06 06:45] VITALS: PULSE 72; RESP 20; TEMP 98.4
[2024-06-06] MEDS ORDERED: KETOROLAC TROMETHAMINE 60 MG/2 ML VIAL ONE (07:06)
[2024-06-06] MEDS: KETOROLAC TROMETHAMINE 60 MG/2 ML VIAL IM ONE (07:11)
[2024-06-06] MEDS: ORPHENADRINE CITRATE 30 MG/ML VIAL IM ONE (07:11)
[2024-06-06] MEDS: HYDROCODONE/APAP 7.5MG-325MG 1 EA TAB PO ONE (07:12)
[2024-06-06] MEDS ORDERED: HYDROCODON-ACE1 EA12 PO (09:59)
[2024-06-06 10:13] VITALS: BP 135/94; PULSE 78; RESP 18; TEMP 98.3; O2SAT 100
== END 2024-06-06 10:16 | disposition home or self-care (01) ==
LOC: ER 06:48
DX: S22.080A Wedge compression fracture of T11-T12 vertebra, initial encounter for closed fracture (principal); S30.0XXA Contusion of lower back and pelvis, initial encounter; S39.012A Strain of muscle, fascia and tendon of lower back, initial encounter; W01.0XXA Fall on same level from slipping, tripping and stumbling without subsequent striking against object, initial encounter; Y93.B9 Activity, other involving muscle strengthening exercises; Y92.39 Other specified sports and athletic area as the place of occurrence of the external cause; I10 Essential (primary) hypertension; E78.5 Hyperlipidemia, unspecified; F32.A Depression, unspecified; F90.9 Attention-deficit hyperactivity disorder, unspecified type; E66.9 Obesity, unspecified; Z98.84 Bariatric surgery status; F17.210 Nicotine dependence, cigarettes, uncomplicated
CPT/HCPCS: 72131; 72192; 99283; J1885; J2360